=== PATIENT | male | born 2000 | race Two or more races ===

== ENCOUNTER 2021-10-18 15:20 | Emergency (ER) | payer MEDICAID, OTHER ==
[~2021-10-18] VITALS: Ht 182.9 cm; Wt 90.7 kg
[2021-10-18 16:35] LABS: Albumin 4.2 g/dL (3.4-5.0); Calcium 9.5 mg/dL (8.5-10.1); Potassium 4.3 mmol/L (3.5-5.1)
[2021-10-18 16:38] LABS: Basophils # (auto) 0.1 10 ^3/uL (0-0.2); Basophils % (auto) 0.6 % (0.0-2.0); Eosinophils # (auto) 0.1 10 ^3/uL (0-0.8); Eosinophils % (auto) 1.1 % (0.0-7.0); Hematocrit 45.2 % (41.0-53.0); Hemoglobin 15.6 g/dL (13.5-17.5); Lymphocytes # (auto) 2.3 10 ^3/uL (0.4-5.4); Lymphocytes % (auto) 23.5 % (10.0-50.0); Mean Corpuscular Hemoglobin 29.4 pg (28.0-32.0); Mean Corpuscular Hgb Conc. 34.5 g/dL (32.0-36.0); Mean Corpuscular Volume 85.3 fL (80.0-100.0); Monocytes # (auto) 0.5 10 ^3/uL (0-1.3); Monocytes % (auto) 5.2 % (0.0-12.0); Neutrophils # (auto) 6.7 10 ^3/uL (1.6-8.6); Neutrophils % (auto) 69.6 % (37.0-80.0); Nucleated Red Blood Cells % 0.5 %; Red Cell Distribution Width 12.7 % (11.8-14.3); White Blood Cell 9.6 10^3/uL (4.4-10.8)
[2021-10-18 16:39] LABS: BUN/Creatinine Ratio 14.4; Bilirubin, Total 1.6 mg/dL (0.2-1.0)
[2021-10-18] MEDS ORDERED: DONNATAL 5ml ORAL Elix (BELLADONNA ALK-PHENOBARB) PO ONE (16:45)
[2021-10-18] MEDS ORDERED: LIDOCAINE VISCOUS 2% 15ML UD PO ONE (16:45)
[2021-10-18] MEDS ORDERED: ALUM & MAG HYDROX-SIMETH LIQ(MAALOX) 30 ML PO ONE (16:45)
[2021-10-18] MEDS ORDERED: FAMOTIDINE 20 MG TAB PO ONE (16:45)
[2021-10-18] MEDS ORDERED: SODIUM CHLORIDE 0.9% 1,000 ML IV ONE (17:15)
[2021-10-18 19:11] VITALS: BP 131/62
== END 2021-10-18 19:53 ==
LOC: ER 15:20
DX: K80.70 Calculus of gallbladder and bile duct without cholecystitis without obstruction (principal); K83.9 Disease of biliary tract, unspecified
CPT/HCPCS: 36415; 76705; 80053; 83690; 85025; 96360; 99285; J7030